=== PATIENT | male | born 1995 | race Caucasian/White ===

== ENCOUNTER 2019-01-07 14:39 | Emergency (ER) | payer OTHER ==
[~2019-01-07] VITALS: Ht 198.1 cm; Wt 99.8 kg
[2019-01-07 14:50] VITALS: BP_SYST 143
--- NOTE | 2019-01-07 14:55 | NUR ---
Patient to ER bed 3 to gown for evaluation. Side rails up.
--- NOTE | 2019-01-07 14:59 | NUR ---
ENRRIQUE Fair at bedside examining patient.
[2019-01-07] MEDS ORDERED: DIPHENHYDRAMINE INJ 50 MG/ML VIAL IVP ONE (15:00)
[2019-01-07] MEDS ORDERED: fentaNYL CITRATE/PF 100 MCG/2 ML AMP IVP ONE (15:00)
[2019-01-07] MEDS ORDERED: NACL 0.9% 1,000 ML IV ONE (15:00)
[2019-01-07] MEDS ORDERED: MORPHINE 4 MG/ML INJ. SYRINGE IVP ONE (15:00)
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
[2019-01-07] MEDS ORDERED: cefTRIAXone 1 GM IVPB PREMIX 50 ML IV ONE (15:15)
[2019-01-07] MEDS ORDERED: LIDOCAINE 2%, 20 ML MDV INJ ONE (15:30)
[2019-01-07] MEDS ORDERED: BACITRACIN 1 GM OINT TP ONE (15:30)
[2019-01-07] MEDS ORDERED: DIPH-TET-PERTUS Vaccine 0.5 ML VIAL (ADACEL) I.M. ONE (15:30)
[2019-01-07] MEDS ORDERED: SODIUM BICARBONATE 8.4% VIAL 50 MEQ/50 ML VIAL INJ ONE (15:30)
--- NOTE | 2019-01-07 15:30 | NUR ---
Pt tolerated medication,continuing to monitor.
--- NOTE | 2019-01-07 16:15 | NUR ---
Pt tolerated wound repair.
--- NOTE | 2019-01-07 17:20 | NUR ---
Short leg posterior splint applied to L leg.Pt tolerated well.
[2019-01-07 17:30] VITALS: BP_SYST 136
--- NOTE | 2019-01-07 17:30 | NUR ---
Patient given written and verbal discharge instructions and verbalizes understanding. ER MD discussed with patient the results and treatment provided. Patient in stable condition. ID arm band removed. IV catheter removed intact and dressing applied, no active bleeding. Rx of motrin, clindamycin, tylenol w/codeine, bacitracin given. Patient educated on pain management and to follow up with PMD. Pain Scale 0/10. Opportunity for questions provided and answered. Medication side effect fact sheet provided.
== END 2019-01-07 17:30 | disposition home or self-care (01) ==
LOC: SED 14:39
DX: S92.335A Nondisplaced fracture of third metatarsal bone, left foot, initial encounter for closed fracture (principal); S91.312A Laceration without foreign body, left foot, initial encounter; S97.82XA Crushing injury of left foot, initial encounter; R03.0 Elevated blood-pressure reading, without diagnosis of hypertension; Z88.2 Allergy status to sulfonamides; V27.4XXA Motorcycle driver injured in collision with fixed or stationary object in traffic accident, initial encounter; Y93.89 Activity, other specified; Y92.89 Other specified places as the place of occurrence of the external cause; Y99.8 Other external cause status
CPT/HCPCS: 12001; 29515; 73610; 73630; 90471; 90715; 96365; 96375; 99283; J0696; J2001; J3010; J7030